=== PATIENT | female | born 1950 | race African-American/Black ===

== ENCOUNTER 2019-03-11 13:46 | Inpatient (IN) | payer OTHER ==
[~2019-03-11] VITALS: Ht 165.1 cm; Wt 86.6 kg
[~2019-03-11 13:46] MED LIST: BUPIVACAINE /PF 0.5% 30 ML VIAL INJ ONE; GLYCOPYRROLATE 0.2 MG/ML VIAL IJ ONE; LIDOCAINE 2%, 20 ML MDV INJ ONE; LR 1,000 ML IV.SOLN IV ONE; NS IRRIG SOLN 1000 ML IR ONE; PHENYLEPHRINE HCL 10 MG/ML VIAL (NEOSYNEPHRINE) IV ONE; PROPOFOL 200MG/ 20ML VIAL (DIPRIVAN) IV ONE; ROCURONIUM BROMIDE 10 MG/ML (ZEMURON) IV ONE; SEVOFLURANE 15 MIN GAS INH ONE
[2019-03-11 13:53] VITALS: BP_SYST 151
[2019-03-11] MEDS ORDERED: NACL 0.9% 1,000 ML IV ONE (13:56)
[2019-03-11] MEDS ORDERED: ONDANSETRON HCL 4 MG/2 ML VIAL IVP ONE (14:00)
[2019-03-11 14:19] LABS: BASOPHILS % (AUTO) 0.2 % (0.0-2.0); EOSINOPHILS # (AUTO) 0.1 K/uL (0.0-0.4); EOSINOPHILS % (AUTO) 0.6 % (0.0-4.0); HEMATOCRIT 43.7 % (36-48); HEMOGLOBIN 14.5 g/dL (12.0-16.0); LYMPHOCYTES # (AUTO) 1.6 K/uL (1.0-5.5); LYMPHOCYTES % (AUTO) 12.5 % (20.5-51.5); MEAN CORPUSCULAR HEMOGLOBIN 30 pg (27-31); MEAN CORPUSCULAR HGB CONC 33 % (32-36); MEAN CORPUSCULAR VOLUME 90 fL (79.0-98.0); MONOCYTES # (AUTO) 0.6 K/uL (0.0-1.0); MONOCYTES % (AUTO) 4.4 % (1.7-9.3); NEUTROPHILS # (AUTO) 10.6 K/uL (1.8-7.7); NEUTROPHILS % (AUTO) 82.3 % (40.0-70.0); PLATELET COUNT (AUTO) 235 K/uL (130-430); RED BLOOD CELL COUNT(AUTO) 4.86 MIL/uL (4.2-6.2); RED CELL DISTRIBUTION WIDTH 12.7 % (9.0-15.0); WHITE BLOOD COUNT (AUTO) 12.9 K/uL (4.8-10.8)
[2019-03-11] MEDS ORDERED: MORPHINE SULFATE 10 MG/ML VIAL ONE (14:25)
[2019-03-11 14:27] LABS: CALCIUM 10.1 mg/dL (8.4-11.0); CREATININE 0.88 mg/dL (0.55-1.30); POTASSIUM 4.1 mmol/L (3.5-5.1)
[2019-03-11 14:29] LABS: INR 0.9 (0.8-1.2); PROTHROMBIN TIME 9.7 SECS (9.5-12.5)
[2019-03-11] MEDS ORDERED: MORPHINE SULFATE 10 MG/ML VIAL IVP ONE (14:30)
[2019-03-11 14:31] LABS: ALBUMIN 3.9 g/dL (3.4-4.8); TOTAL BILIRUBIN 0.5 mg/dL (0.0-1.0)
[2019-03-11 14:55] LABS: BILIRUBIN,URINE NEGATIVE (NEGATIVE); BLOOD, URINE 1+ (NEGATIVE); CLARITY/URINE CLEAR (CLEAR); COLOR,URINE YELLOW (YELLOW); GLUCOSE,URINE NEGATIVE (NEGATIVE); KETONES,URINE TRACE (NEGATIVE); LEUKOCYTE ESTERASE ,URINE NEGATIVE (NEGATIVE); NITRITE, URINE POSITIVE (NEGATIVE); PROTEIN URINE 2+ (NEGATIVE); UROBILINOGEN,URINE 0.2 (0.2-1.0)
[2019-03-11 15:00] LABS: CKMB RELATIVE INDEX 0.8 (0.0-2.9); CREATINE KINASE MB 1.6 ng/mL (0-3.6)
[2019-03-11 15:01] LABS: BACTERIA,URINE MANY /HPF (None Seen); WBC,URINE 0-3 /HPF (0-3)
[2019-03-11] MEDS ORDERED: cefTRIAXone 1 GM IVPB PREMIX 50 ML IV ONE (15:15)
[2019-03-11] MEDS ORDERED: MORPHINE 4 MG/ML INJ. SYRINGE IVP PRN (15:15)
[2019-03-11] MEDS ORDERED: NACL 0.9% 2,000 ML IV ONE (15:15)
[2019-03-11] MEDS: D5/0.45 NS 1,000 ML IV SCH (15:15)
[2019-03-11] MEDS ORDERED: HYDROcodone/ACETAMIN 5-325 MG TAB (NORCO/ VICODIN) PO PRN (15:15)
[2019-03-11 15:39] VITALS: BP_SYST 171
[2019-03-11 15:57] VITALS: BP_SYST 169
[2019-03-11] MEDS ORDERED: ONDANSETRON HCL 4 MG/2 ML VIAL IVP PRN (16:15)
[2019-03-11] MEDS ORDERED: NO HOME MEDICATION (16:19)
[2019-03-11] MEDS: hydrALAZINE HCL 20 MG/ML VIAL IVP PRN ×2 (16:21→21:23)
[2019-03-11 17:41] VITALS: BP_SYST 130
[2019-03-11] MEDS: PANTOPRAZOLE SODIUM 40 MG/VIAL (PROTONIX) IVP SCH (18:55)
[2019-03-11 20:40] VITALS: BP_SYST 172
[2019-03-11] MEDS: PROMETHAZINE INJ.Non-Formulary 25 MG/ML AMP IVP PRN (21:19)
[2019-03-11] MEDS: MORPHINE 4 MG/ML INJ. SYRINGE IVP PRN (21:22)
[2019-03-11 23:36] VITALS: BP_SYST 142
[2019-03-12] MEDS: D5/0.45 NS 1,000 ML IV SCH ×2 (01:12→17:34)
[2019-03-12 07:37] VITALS: BP_SYST 128
[2019-03-12] MEDS ORDERED: DOCUSATE SODIUM 100 MG CAPSULE PO PRN (07:45)
[2019-03-12] MEDS ORDERED: MAGNESIUM SULFATE 50 ML IV PRN (07:45)
[2019-03-12] MEDS ORDERED: MUPIROCIN 2% TOPICAL OINTMENT 22 GM NS PRN (07:45)
[2019-03-12] MEDS ORDERED: ACETAMINOPHEN 325 MG TABLET PO PRN (07:45)
[2019-03-12] MEDS ORDERED: POTASSIUM CHLORIDE 20 MEQ TAB.PRT.SR PO PRN (07:45)
[2019-03-12] MEDS ORDERED: DIATR MEGLU/DIATRIZ SOD 30 ML SOLUTION PO ONE (08:39)
[2019-03-12] MEDS ORDERED: cefTRIAXone 1 GM in D5W 50 ML IV SCH (09:00)
[2019-03-12] MEDS: PROMETHAZINE INJ.Non-Formulary 25 MG/ML AMP IVP PRN (09:04)
[2019-03-12] MEDS: PANTOPRAZOLE SODIUM 40 MG/VIAL (PROTONIX) IVP SCH (09:06)
[2019-03-12] MEDS: PIPERACILLIN/TAZO 3.375/DEX-IS 50 ML IV SCH ×3 (09:07→17:34)
[2019-03-12] MEDS: METOCLOPRAMIDE HCL 10 MG/2 ML VIAL IVP PRN ×2 (09:45→18:28)
[2019-03-12 12:29] VITALS: BP_SYST 122
[2019-03-12] MEDS ORDERED: GASTROGRAFIN 120 ML ONE (14:47)
[2019-03-12] MEDS: MORPHINE 4 MG/ML INJ. SYRINGE IVP PRN ×2 (18:30→21:41)
[2019-03-12] MEDS: HEPARIN SODIUM,PORCINE 5000 UNITS/ML VIAL SUBCUT SCH (20:40)
[2019-03-12 20:44] VITALS: BP_SYST 131
[2019-03-12 23:14] VITALS: BP_SYST 114
[2019-03-13] MEDS: PIPERACILLIN/TAZO 3.375/DEX-IS 50 ML IV SCH ×4 (00:17→17:31)
[2019-03-13] MEDS: MORPHINE 4 MG/ML INJ. SYRINGE IVP PRN ×2 (00:22→04:09)
[2019-03-13 06:30] LABS: HEMATOCRIT 49.2 % (36-48); HEMOGLOBIN 16.2 g/dL (12.0-16.0); MEAN CORPUSCULAR HEMOGLOBIN 30 pg (27-31); MEAN CORPUSCULAR HGB CONC 33 % (32-36); MEAN CORPUSCULAR VOLUME 90 fL (79.0-98.0); PLATELET COUNT (AUTO) 287 K/uL (130-430); RED BLOOD CELL COUNT(AUTO) 5.44 MIL/uL (4.2-6.2); RED CELL DISTRIBUTION WIDTH 13.1 % (9.0-15.0)
[2019-03-13 06:37] LABS: CALCIUM 10.2 mg/dL (8.4-11.0); CREATININE 4.68 mg/dL (0.55-1.30); POTASSIUM 5.2 mmol/L (3.5-5.1)
[2019-03-13 07:30] VITALS: BP_SYST 140
[2019-03-13 07:53] LABS: BASOPHILS % (MANUAL) 0 % (0-2); EOSINOPHILS % (MANUAL) 0 % (0-7); LYMPHOCYTES % (MANUAL) 5 % (20-46); MONOCYTES % (MANUAL) 7 % (0-11)
[2019-03-13] MEDS: PANTOPRAZOLE SODIUM 40 MG/VIAL (PROTONIX) IVP SCH (08:32)
[2019-03-13] MEDS: HEPARIN SODIUM,PORCINE 5000 UNITS/ML VIAL SUBCUT SCH ×2 (08:34→22:00)
[2019-03-13] MEDS: D5/0.45 NS 1,000 ML IV SCH (10:57)
[2019-03-13 12:08] VITALS: BP_SYST 100
[2019-03-13 16:08] VITALS: BP_SYST 144
[2019-03-13 20:39] VITALS: BP_SYST 141
[2019-03-14] VITALS (7 sets, daily range): BP systolic 108–136
[2019-03-14] MEDS: PIPERACILLIN/TAZO 3.375/DEX-IS 50 ML IV SCH ×2 (00:13→05:17)
[2019-03-14] MEDS: D5/0.45 NS 1,000 ML IV SCH ×3 (00:17→21:08)
[2019-03-14 06:29] LABS: BASOPHILS % (AUTO) 0.1 % (0.0-2.0); HEMATOCRIT 40.7 % (36-48); HEMOGLOBIN 13.3 g/dL (12.0-16.0); LYMPHOCYTES # (AUTO) 1.5 K/uL (1.0-5.5); LYMPHOCYTES % (AUTO) 6.6 % (20.5-51.5); MEAN CORPUSCULAR HEMOGLOBIN 30 pg (27-31); MEAN CORPUSCULAR HGB CONC 33 % (32-36); MEAN CORPUSCULAR VOLUME 90 fL (79.0-98.0); MONOCYTES # (AUTO) 1.9 K/uL (0.0-1.0); MONOCYTES % (AUTO) 8.3 % (1.7-9.3); NEUTROPHILS # (AUTO) 19.7 K/uL (1.8-7.7); PLATELET COUNT (AUTO) 239 K/uL (130-430); RED BLOOD CELL COUNT(AUTO) 4.51 MIL/uL (4.2-6.2); RED CELL DISTRIBUTION WIDTH 12.7 % (9.0-15.0); WHITE BLOOD COUNT (AUTO) 23.1 K/uL (4.8-10.8)
[2019-03-14 06:35] LABS: CALCIUM 9.3 mg/dL (8.4-11.0); POTASSIUM 4.3 mmol/L (3.5-5.1)
[2019-03-14] MEDS: HEPARIN SODIUM,PORCINE 5000 UNITS/ML VIAL SUBCUT SCH ×2 (09:00→21:00)
[2019-03-14] MEDS: PANTOPRAZOLE SODIUM 40 MG/VIAL (PROTONIX) IVP SCH (09:50)
[2019-03-14] MEDS ORDERED: VANCOMYCIN HCL 1,250 MG in NS 250 ML IV ONE (10:30)
[2019-03-14 12:27] LABS: CALCIUM 8.8 mg/dL (8.4-11.0); CREATININE 7.07 mg/dL (0.55-1.30); POTASSIUM 3.8 mmol/L (3.5-5.1)
[2019-03-14] MEDS: PIPERACILLIN/TAZOBACTAM 2.25 GM/ D5W 50 ML IV SCH ×4 (13:26→21:56)
[2019-03-14] MEDS ORDERED: ACETAMINOPHEN/CODEINE 300 MG-30 MG TABLET PO PRN (17:30)
[2019-03-14] MEDS ORDERED: ONDANSETRON HCL 4 MG/2 ML VIAL IVP PRN (17:30)
[2019-03-14] MEDS ORDERED: METOCLOPRAMIDE HCL 10 MG/2 ML VIAL IVP PRN (17:45)
[2019-03-14] MEDS ORDERED: fentaNYL CITRATE/PF 100 MCG/2 ML AMP IVP PRN (17:45)
[2019-03-14] MEDS ORDERED: hydrALAZINE HCL 20 MG/ML VIAL ONE (19:18)
[2019-03-14] MEDS: fentaNYL CITRATE/PF 100 MCG/2 ML AMP IVP PRN ×2 (19:37→19:50)
[2019-03-14] MEDS ORDERED: fentaNYL CITRATE/PF 100 MCG/2 ML AMP ONE (19:45)
[2019-03-14] MEDS: metroNIDAZOLE 500 mg/NS 100 ML IV SCH (21:07)
[2019-03-14] MEDS ORDERED: hydrALAZINE HCL 20 MG/ML VIAL IVP SCH (21:30)
[2019-03-14 21:35] LABS: BILIRUBIN,URINE NEGATIVE (NEGATIVE); BLOOD, URINE 1+ (NEGATIVE); CLARITY/URINE SL HAZY (CLEAR); COLOR,URINE YELLOW (YELLOW); GLUCOSE,URINE NEGATIVE (NEGATIVE); KETONES,URINE NEGATIVE (NEGATIVE); LEUKOCYTE ESTERASE ,URINE NEGATIVE (NEGATIVE); NITRITE, URINE NEGATIVE (NEGATIVE); PH,URINE 5.5 (5.0-8.0); PROTEIN URINE TRACE (NEGATIVE); UROBILINOGEN,URINE 0.2 (0.2-1.0)
[2019-03-14 22:29] LABS: BACTERIA,URINE FEW /HPF (None Seen); WBC,URINE 0-3 /HPF (0-3)
[2019-03-14 22:30] LABS: URINE AMORPHOUS URATE 1+ /HPF (None Seen)
[2019-03-15] MEDS: MORPHINE 4 MG/ML INJ. SYRINGE IVP PRN ×3 (00:03→11:04)
[2019-03-15 00:06] VITALS: BP_SYST 124
[2019-03-15] MEDS: PIPERACILLIN/TAZOBACTAM 2.25 GM/ D5W 50 ML IV SCH ×2 (05:30)
[2019-03-15 06:31] LABS: BASOPHILS % (AUTO) 0.1 % (0.0-2.0); EOSINOPHILS % (AUTO) 0.1 % (0.0-4.0); HEMATOCRIT 33.7 % (36-48); HEMOGLOBIN 11.2 g/dL (12.0-16.0); LYMPHOCYTES % (AUTO) 8.3 % (20.5-51.5); MEAN CORPUSCULAR HEMOGLOBIN 30 pg (27-31); MEAN CORPUSCULAR HGB CONC 33 % (32-36); MEAN CORPUSCULAR VOLUME 90 fL (79.0-98.0); MONOCYTES # (AUTO) 1.5 K/uL (0.0-1.0); MONOCYTES % (AUTO) 12.8 % (1.7-9.3); NEUTROPHILS # (AUTO) 9.3 K/uL (1.8-7.7); NEUTROPHILS % (AUTO) 78.7 % (40.0-70.0); PLATELET COUNT (AUTO) 192 K/uL (130-430); RED BLOOD CELL COUNT(AUTO) 3.76 MIL/uL (4.2-6.2); RED CELL DISTRIBUTION WIDTH 12.5 % (9.0-15.0)
[2019-03-15 06:34] LABS: CREATININE 5.8 mg/dL (0.55-1.30); POTASSIUM 3.6 mmol/L (3.5-5.1)
[2019-03-15 06:50] LABS: WHITE BLOOD COUNT (AUTO) 11.9 K/uL (4.8-10.8)
[2019-03-15 08:01] VITALS: BP_SYST 111
[2019-03-15] MEDS: metroNIDAZOLE 500 mg/NS 100 ML IV SCH ×2 (09:02→20:18)
[2019-03-15] MEDS: PANTOPRAZOLE SODIUM 40 MG/VIAL (PROTONIX) IVP SCH (09:02)
[2019-03-15] MEDS: HEPARIN SODIUM,PORCINE 5000 UNITS/ML VIAL SUBCUT SCH ×2 (09:03→20:18)
[2019-03-15] MEDS: D5/0.45 NS 1,000 ML IV SCH ×2 (09:16→20:19)
[2019-03-15] MEDS: cefTRIAXone 1 GM in D5W 50 ML IV SCH (11:53)
[2019-03-15 12:38] VITALS: BP_SYST 138
[2019-03-15 16:40] VITALS: BP_SYST 132
[2019-03-15 20:00] VITALS: BP_SYST 141
[2019-03-15 23:18] VITALS: BP_SYST 134
[2019-03-16 06:26] LABS: BASOPHILS % (AUTO) 0.1 % (0.0-2.0); EOSINOPHILS # (AUTO) 0.1 K/uL (0.0-0.4); HEMATOCRIT 29.3 % (36-48); HEMOGLOBIN 9.9 g/dL (12.0-16.0); LYMPHOCYTES # (AUTO) 0.7 K/uL (1.0-5.5); LYMPHOCYTES % (AUTO) 6.8 % (20.5-51.5); MEAN CORPUSCULAR HEMOGLOBIN 30 pg (27-31); MEAN CORPUSCULAR HGB CONC 34 % (32-36); MEAN CORPUSCULAR VOLUME 89 fL (79.0-98.0); MONOCYTES # (AUTO) 1.3 K/uL (0.0-1.0); MONOCYTES % (AUTO) 13.2 % (1.7-9.3); NEUTROPHILS # (AUTO) 7.6 K/uL (1.8-7.7); NEUTROPHILS % (AUTO) 78.9 % (40.0-70.0); PLATELET COUNT (AUTO) 170 K/uL (130-430); RED CELL DISTRIBUTION WIDTH 12.3 % (9.0-15.0); WHITE BLOOD COUNT (AUTO) 9.6 K/uL (4.8-10.8)
[2019-03-16 06:41] LABS: CALCIUM 8.3 mg/dL (8.4-11.0); CREATININE 2.87 mg/dL (0.55-1.30); POTASSIUM 3.1 mmol/L (3.5-5.1); VANCOMYCIN,RANDOM 6.6 ug/mL
[2019-03-16 08:00] VITALS: BP_SYST 132
[2019-03-16] MEDS: cefTRIAXone 1 GM in D5W 50 ML IV SCH (08:57)
[2019-03-16] MEDS: PANTOPRAZOLE SODIUM 40 MG/VIAL (PROTONIX) IVP SCH (08:58)
[2019-03-16] MEDS: HEPARIN SODIUM,PORCINE 5000 UNITS/ML VIAL SUBCUT SCH (08:58)
[2019-03-16] MEDS ORDERED: VANCOMYCIN HCL 1.25 GM/NS 250 ML IV ONE (09:00)
[2019-03-16] MEDS: metroNIDAZOLE 500 mg/NS 100 ML IV SCH (09:48)
[2019-03-16] MEDS: D5/0.45 NS 1,000 ML IV SCH (09:48)
[2019-03-16 12:37] VITALS: BP_SYST 154
[2019-03-16 12:42] VITALS: BP_SYST 154
[2019-03-16 16:44] VITALS: BP_SYST 128
== END 2019-03-16 16:10 | DRG 853 ==
LOC: SED 13:46 → SMU 15:15 → STU 03-12 21:57
PROVIDERS: ADMIT Family Medicine; ATTEND Family Medicine
PROC: 0DB80ZZ Excision of Small Intestine, Open Approach (ICD-10-PCS; principal; 2019-03-14 16:30)
DX: A41.9 Sepsis, unspecified organism (principal); N17.0 Acute kidney failure with tubular necrosis; N39.0 Urinary tract infection, site not specified; K56.600 Partial intestinal obstruction, unspecified as to cause; K42.0 Umbilical hernia with obstruction, without gangrene; K55.9 Vascular disorder of intestine, unspecified; K80.10 Calculus of gallbladder with chronic cholecystitis without obstruction; R18.8 Other ascites; K57.90 Diverticulosis of intestine, part unspecified, without perforation or abscess without bleeding; I10 Essential (primary) hypertension; K66.0 Peritoneal adhesions (postprocedural) (postinfection); M19.90 Unspecified osteoarthritis, unspecified site; M41.9 Scoliosis, unspecified; M47.816 Spondylosis without myelopathy or radiculopathy, lumbar region; Z96.641 Presence of right artificial hip joint; I25.10 Atherosclerotic heart disease of native coronary artery without angina pectoris; Z90.710 Acquired absence of both cervix and uterus
CPT/HCPCS: 36415; 71045; 74021; 74250-TC; 76770; 80048; 80053; 80202-TC; 81000-TC; 82150-TC; 82550-TC; 82553-TC; 83036; 83605; 83690-TC; 83735-TC; 83880; 84484; 85007; 85025; 85027; 85610-TC; 85730-TC; 87040-TC; 87081; 87086; 88307; 93005; 96361; 96365; 96375; 99285; C9113; G0378; J0360; J0696; J1644; J2001; J2270; J2370; J2405; J2543; J2550; J2704; J2765; J3010; J3370; J3490; J7050; J7060; J7120; Q9963; Q9964